=== PATIENT | female | born 1995 | race Caucasian/White ===

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

== ENCOUNTER 2019-07-16 19:14 | Emergency (ER) | payer OTHER ==
[2019-07-16 19:49] VITALS: BP 163/92
[2019-07-16] MEDS ORDERED: KETOROLAC TROMETHAMINE 60 MG/2 ML SDV IM ONE (20:40)
[2019-07-16] MEDS ORDERED: PROMETHAZINE HCL INJ 50 MG/1 ML VIAL IM PRN (20:40)
--- NOTE | 2019-07-16 20:42 | ER Document Report ---
ED Medical Screen (RME) - General Chief Complaint: Chest Pain Stated Complaint: CHEST PAINS, DIZINESS Time Seen by Provider: 07/16/19 20:34 Primary Care Provider: JERED CHAVEZ DO [Primary Care Provider] - Follow up as needed Mode of Arrival: Ambulatory Information source: Patient Notes: 23-year-old female presents emergency department with complaints of migraine for a month. She reports she has been evaluated at urgent care and given a shot of Phenergan and some Toradol but headache is still there. She reports it is a throbbing pain to the right side of her head. Reports history of migraine headaches. She reports she was diagnosed 4 years ago by a neurologist. She has not had insurance for 3 years so she has not been able to follow-up with them. She reports she has an appointment with the neurologist tomorrow now. Patient does have Phenergan at home but did not take it because she was at work. Patient also complains of tightness heaviness chest pain started today while she is at work. Denies history of cardiac disease. Denies fever nausea vomiting diarrhea. Denies cough. Denies family history of cardiac disease. EKG sinus rhythm no ST elevation no T wave inversion. Respiratory rate even unlabored TRAVEL OUTSIDE OF THE [place] IN LAST 30 DAYS: No - Related Data Allergies/Adverse Reactions: latex Allergy (Verified 07/16/19 20:34) Physical Exam - Vital signs Vitals: Temp Pulse Resp BP Pulse Ox 97.8 F 67 18 163/92 H 100 07/16/19 19:49 07/16/19 19:49 07/16/19 19:49 07/16/19 19:49 07/16/19 19:49 Course - Vital Signs Vital signs: Temp Pulse Resp BP Pulse Ox 97.8 F 67 18 163/92 H 100 07/16/19 19:49 07/16/19 19:49 07/16/19 19:49 07/16/19 19:49 07/16/19 19:49 Doctor's Discharge - Discharge Referrals: JERED CHAVEZ DO [Primary Care Provider] - Follow up as needed
--- NOTE | 2019-07-16 21:17 | RADIOLOGY REPORT (SQ) ---
EXAM DESCRIPTION: [facility]: XR CHEST 2 VIEWS Views: 2 CLINICAL HISTORY: 23 years Female; cp; COMPARISON: None. FINDINGS: Lungs: Lungs are clear, with no focal infiltrate, pneumothorax, or pleural effusion. Mediastinum: Mediastinum is within normal limits for this positioning. Bones: Bony structures are unremarkable. IMPRESSION: 1. No acute cardiothoracic abnormality.
--- NOTE | 2019-07-16 22:22 | EKG REPORT ---
SEVERITY:- NORMAL ECG - SINUS RHYTHM : Confirmed by: Scott Dunn MD 16-Jul-2019 22:22:01
== END 2019-07-17 00:50 | disposition left against medical advice (07) ==
LOC: ER 19:14
DX: G43.909 Migraine, unspecified, not intractable, without status migrainosus (principal); R07.89 Other chest pain; Z91.040 Latex allergy status; Z53.20 Procedure and treatment not carried out because of patient's decision for unspecified reasons
CPT/HCPCS: 71046; 93005; 93010; 99281